=== PATIENT | male | born 1960 | race Two or more races ===

== ENCOUNTER 2020-04-19 09:07 | Outpatient (CLI) | payer BC | END 2020-04-19 23:59 | disposition home or self-care (01) | LOC: LAB 09:07 | PROVIDERS: ATTEND Student in an Organized Health Care Education/Training Program | DX: Z01.812 Encounter for preprocedural laboratory examination (principal); Z20.822 Contact with and (suspected) exposure to COVID-19 | CPT/HCPCS: 87426; C9803 ×2; U0003 ==

== ENCOUNTER 2020-04-24 11:07 | Day surgery (SDC) | payer BC ==
[2020-04-24] MEDS ORDERED: INSULIN REGULAR, HUMAN 100 UNIT/ML 10 ML VIAL ONE (13:01)
[2020-04-24] MEDS ORDERED: BACITRACIN 50000 UNITS/VIAL ONE (14:14)
[2020-04-24] MEDS ORDERED: LIDOCAINE 1% INJ 50 ML MDV IJ ONE (14:14)
[2020-04-24] MEDS ORDERED: BUPIVACAINE 0.25% 75 MG/30 ML VIAL ONE (14:14)
[2020-04-24] MEDS ORDERED: BUPIVACAINE 0.5 % PF 150 MG/30 ML VIAL ONE (14:14)
== END 2020-04-24 17:15 | disposition home or self-care (01) ==
LOC: DS 11:07
PROVIDERS: ATTEND Student in an Organized Health Care Education/Training Program
DX: G56.01 Carpal tunnel syndrome, right upper limb (principal); E11.9 Type 2 diabetes mellitus without complications; M65.341 Trigger finger, right ring finger; D17.21 Benign lipomatous neoplasm of skin and subcutaneous tissue of right arm
CPT/HCPCS: 25075; 26055; 64721; 82962 ×2; 93005; A4565; A6402; J1815; J2001; J2704; J3490